=== PATIENT | male | born 1945 | race Caucasian/White ===

== ENCOUNTER 2024-04-10 17:01 | Inpatient (IN) | payer MEDICARE, OTHER ==
[~2024-04-10] VITALS: Ht 165.1 cm; Wt 62.2 kg
[2024-04-10 17:30] VITALS: BP 141/73; TEMP 98; O2SAT 97
[2024-04-10] MEDS ORDERED: ATOR20TA PO ×2 (18:25→20:28)
[2024-04-10] MEDS ORDERED: FINA5TAB11 PO (18:25)
[2024-04-10] MEDS ORDERED: IPRA0.2S6 HHN (18:25)
[2024-04-10] MEDS ORDERED: HYDR-4075 IV (18:25)
[2024-04-10] MEDS ORDERED: ONDA4TAB5 IVP (18:25)
[2024-04-10] MEDS ORDERED: BISO5TAB21 PO (18:25)
[2024-04-10] MEDS ORDERED: MORP15TA PO (18:25)
[2024-04-10] MEDS ORDERED: APIX5TAB4 PO (18:25)
[2024-04-10] MEDS ORDERED: FERR220S16 PO (18:25)
[2024-04-10] MEDS ORDERED: TAMS-3 PO (18:25)
[2024-04-10] MEDS ORDERED: ACET650T10 PO (18:25)
[2024-04-10] MEDS ORDERED: SODI62.58 IV (18:25)
[2024-04-10] MEDS ORDERED: APIX5TAB PO (20:18)
[2024-04-10] MEDS ORDERED: ACET-3102 PO (20:18)
[2024-04-10 22:02] LABS: BASOPHILS # (AUTO) 0.1 K/UL (0.0-0.2); BASOPHILS % (AUTO) 0.7 % (0.0-2.0); EOSINOPHILS # (AUTO) 0.2 K/uL (0.0-0.7); EOSINOPHILS % (AUTO) 2.7 % (0.0-7.0); HEMATOCRIT 25.8 % (36.7-47.1); HEMOGLOBIN 8.7 g/dL (12.5-16.3); LYMPHOCYTES % (AUTO) 12.3 % (20.5-51.5); MEAN CORPUSCULAR HEMOGLOBIN 25.7 uug (23.8-33.4); MEAN CORPUSCULAR HGB CONC 34 g/dL (32.5-36.3); MEAN CORPUSCULAR VOLUME 76.1 fL (73.0-96.2); MONOCYTES # (AUTO) 0.8 K/uL (0.1-1.30); MONOCYTES % (AUTO) 9.2 % (0.0-11.0); NEUTROPHILS # (AUTO) 6.1 K/uL (1.8-8.9); NEUTROPHILS % (AUTO) 75.1 % (38.5-71.5); PLATELET COUNT (AUTO) 327 K/uL (152-348); RED BLOOD CELL COUNT(AUTO) 3.39 MIL/uL (4.06-5.63); WHITE BLOOD COUNT (AUTO) 8.1 K/uL (3.6-10.2)
[2024-04-10 22:04] LABS: DIFFERENTIAL COMMENT 1
[2024-04-10 22:10] LABS: CALCIUM 8.5 mg/dL (8.5-10.1); CARBON DIOXIDE 27 mmol/L (21-32); CHLORIDE 107 mmol/L (98-107); CREATININE 0.8 mg/dL (0.6-1.3); GLUCOSE 118 mg/dL (74-106); POTASSIUM 3.9 mmol/L (3.5-5.1); SODIUM SERUM 141 mmol/L (136-145); UREA NITROGEN, BLOOD 15 mg/dL (7-18)
[2024-04-10] MEDS: TAMSULOSIN HCL 0.4 MG CAP.SR.24H PO SCH (22:14)
[2024-04-10] MEDS: APIXABAN 5 MG TABLET PO SCH (23:23)
[2024-04-10 23:27] VITALS: BP 136/63; TEMP 98.2; O2SAT 95
[2024-04-11] MEDS: ACETAMINOPHEN 325 MG TABLET PO PRN (01:38)
[2024-04-11] MEDS ORDERED: REMEDY ESSENTIAL ZINC PASTE 113 GM TOP PRN (05:15)
[2024-04-11 05:42] VITALS: O2SAT 97
[2024-04-11] MEDS: FINASTERIDE 5 MG TABLET PO SCH (09:25)
[2024-04-11] MEDS: ATENOLOL 25 MG TABLET PO SCH (09:25)
[2024-04-11] MEDS: OXYCODONE/APAP 5-325 MG TABLET PO PRN (13:28)
[2024-04-11 13:57] LABS: BASOPHILS % (AUTO) 0.5 % (0.0-2.0); EOSINOPHILS # (AUTO) 0.2 K/uL (0.0-0.7); EOSINOPHILS % (AUTO) 2.5 % (0.0-7.0); HEMOGLOBIN 8.6 g/dL (12.5-16.3); LYMPHOCYTES # (AUTO) 0.8 K/uL (0.8-4.8); MEAN CORPUSCULAR HEMOGLOBIN 25.3 uug (23.8-33.4); MEAN CORPUSCULAR HGB CONC 33 g/dL (32.5-36.3); MEAN CORPUSCULAR VOLUME 76.5 fL (73.0-96.2); MONOCYTES # (AUTO) 0.8 K/uL (0.1-1.30); MONOCYTES % (AUTO) 10.3 % (0.0-11.0); NEUTROPHILS # (AUTO) 6.2 K/uL (1.8-8.9); NEUTROPHILS % (AUTO) 76.7 % (38.5-71.5); PLATELET COUNT (AUTO) 348 K/uL (152-348); RED CELL DISTRIBUTION WIDTH 18.3 % (12.1-16.2)
[2024-04-11 14:01] LABS: DIFFERENTIAL COMMENT 1
[2024-04-11 14:07] LABS: CARBON DIOXIDE 28 mmol/L (21-32); CHLORIDE 109 mmol/L (98-107); GLUCOSE 99 mg/dL (74-106); PHOSPHOROUS 3.6 mg/dL (2.5-4.9); POTASSIUM 3.9 mmol/L (3.5-5.1); SODIUM SERUM 145 mmol/L (136-145); UREA NITROGEN, BLOOD 18 mg/dL (7-18)
[2024-04-11 14:17] LABS: CALCIUM 8.7 mg/dL (8.5-10.1); CREATININE 0.8 mg/dL (0.6-1.3)
[2024-04-11] MEDS: SOD FERRIC GLUC COMPLX/SUCROSE 125 MG in IV NORMAL SALINE 100 ML IV SCH (15:06)
[2024-04-11 16:03] VITALS: BP 132/63; TEMP 97.7; O2SAT 95
[2024-04-11 20:57] VITALS: BP 126/56; TEMP 97.9; O2SAT 90
[2024-04-11] MEDS: ATORVASTATIN 20 MG TABLET PO SCH (21:38)
[2024-04-12 06:52] VITALS: BP 151/78; TEMP 97.7; O2SAT 92
[2024-04-12 15:18] VITALS: BP 123/56; TEMP 97.8; O2SAT 97
[2024-04-12 19:22] VITALS: BP 136/61; TEMP 98.5; O2SAT 95
[2024-04-13 06:15] VITALS: BP 158/74; TEMP 98.4; O2SAT 94
[2024-04-13] MEDS: OXYCODONE HCL 5 MG TABLET PO PRN (08:16)
[2024-04-13 15:17] VITALS: BP 117/59; TEMP 97.6; O2SAT 96
[2024-04-13 19:32] VITALS: BP_SYST 120; BP_SYST 149; BP_DIAS 54; BP_DIAS 66; TEMP 98.8; O2SAT 92; O2SAT 94
[2024-04-13] MEDS: MIRALAX 17 GM POWD.PACK PO SCH (20:55)
[2024-04-14 06:40] VITALS: BP 149/74; TEMP 98.3; O2SAT 95
[2024-04-14 14:54] VITALS: BP 121/67; TEMP 97.1; O2SAT 96
[2024-04-14 20:41] VITALS: BP 136/67; TEMP 97.9; O2SAT 96
[2024-04-15 06:00] VITALS: BP 137/68; TEMP 98.3; O2SAT 97
[2024-04-15] MEDS ORDERED: MAGNESIUM HYDROXIDE 30 ML LIQUID UDC PO PRN (14:30)
[2024-04-15] MEDS: MAGNESIUM HYDROXIDE 30 ML LIQUID UDC PO PRN (15:41)
[2024-04-15 16:12] VITALS: BP 125/60; TEMP 97.6; O2SAT 98
[2024-04-15 20:00] VITALS: BP 145/65; TEMP 98; O2SAT 97
[2024-04-16 05:47] VITALS: BP 132/72; TEMP 98.1; O2SAT 95
[2024-04-16] MEDS: SENNOSIDES/DOCUSATE SODIUM TABLET PO SCH (08:57)
[2024-04-16 16:05] VITALS: BP 121/64; TEMP 97.6; O2SAT 97
[2024-04-16 19:00] VITALS: BP 92/46; TEMP 97.9; O2SAT 93
[2024-04-17 06:06] VITALS: BP 104/68; TEMP 97.6; O2SAT 95
[2024-04-17 15:26] VITALS: BP 131/73; TEMP 97.8; O2SAT 96
[2024-04-17 20:27] VITALS: BP 112/63; TEMP 97.8; O2SAT 94
[2024-04-18 06:49] VITALS: BP 145/74; TEMP 98.6; O2SAT 94
[2024-04-18 16:15] VITALS: BP 124/63; TEMP 97.8; O2SAT 96
[2024-04-18 20:04] VITALS: BP 109/68; TEMP 98.1; O2SAT 95
[2024-04-19 06:10] VITALS: BP 120/69; TEMP 97.8; O2SAT 94
[2024-04-19 07:29] LABS: BASOPHILS # (AUTO) 0.1 K/UL (0.0-0.2); BASOPHILS % (AUTO) 1.1 % (0.0-2.0); EOSINOPHILS # (AUTO) 0.3 K/uL (0.0-0.7); EOSINOPHILS % (AUTO) 4.1 % (0.0-7.0); HEMATOCRIT 29.6 % (36.7-47.1); HEMOGLOBIN 9.8 g/dL (12.5-16.3); LYMPHOCYTES # (AUTO) 1.1 K/uL (0.8-4.8); LYMPHOCYTES % (AUTO) 17.3 % (20.5-51.5); MEAN CORPUSCULAR HEMOGLOBIN 25.8 uug (23.8-33.4); MEAN CORPUSCULAR HGB CONC 33 g/dL (32.5-36.3); MEAN CORPUSCULAR VOLUME 78.2 fL (73.0-96.2); MONOCYTES # (AUTO) 0.5 K/uL (0.1-1.30); MONOCYTES % (AUTO) 7.6 % (0.0-11.0); NEUTROPHILS # (AUTO) 4.3 K/uL (1.8-8.9); NEUTROPHILS % (AUTO) 69.9 % (38.5-71.5); PLATELET COUNT (AUTO) 504 K/uL (152-348); RED BLOOD CELL COUNT(AUTO) 3.79 MIL/uL (4.06-5.63); RED CELL DISTRIBUTION WIDTH 18.5 % (12.1-16.2); WHITE BLOOD COUNT (AUTO) 6.2 K/uL (3.6-10.2)
[2024-04-19 07:32] LABS: CALCIUM 8.7 mg/dL (8.5-10.1); CARBON DIOXIDE 30 mmol/L (21-32); CHLORIDE 105 mmol/L (98-107); CREATININE 0.7 mg/dL (0.6-1.3); GLUCOSE 94 mg/dL (74-106); SODIUM SERUM 141 mmol/L (136-145); UREA NITROGEN, BLOOD 17 mg/dL (7-18)
[2024-04-19 07:34] LABS: DIFFERENTIAL COMMENT 1
[2024-04-19 08:37] LABS: *BILIRUBIN,URIN NEGATIVE (NEGATIVE); *CLARITY,URINE CLEAR (CLEAR); *COLOR,URINE YELLOW (YELLOW); *KETONES,URINE NEGATIVE (NEGATIVE); *PROTEIN,URINE NEGATIVE (NEGATIVE); *UROBILINOGEN,URINE 0.2 E.U./dl (NORMAL); LEUKOCYTE ESTERASE ,URINE NEGATIVE (NEGATIVE); NITRITE, URINE NEGATIVE (NEGATIVE); UGLUCOSE NEGATIVE (NEGATIVE)
[2024-04-19 08:49] LABS: *BLOOD, URINE TRACE (NEGATIVE); WBC,URINE 0-3 /HPF (0-3)
[2024-04-19 15:18] VITALS: BP 115/64; TEMP 97.4; O2SAT 97
[2024-04-19] MEDS ORDERED: BISACODYL 5 MG TABLET.DR PO PRN (17:30)
[2024-04-19] MEDS ORDERED: HYDROCORTISONE 1% OINT 28.35 GM TUBE TOP PRN (19:00)
[2024-04-19 19:34] VITALS: BP 103/62; TEMP 98.3; O2SAT 94
[2024-04-20 06:40] VITALS: BP 130/61; TEMP 98.4; O2SAT 96
[2024-04-20] MEDS: LINZESS 145 MCG PO PRN (09:05)
[2024-04-20] MEDS: [UNRECOGNIZED DRUG - OTHER] PO PRN (09:05)
[2024-04-20 16:15] VITALS: BP 105/61; TEMP 98.1; O2SAT 96
[2024-04-20 20:00] VITALS: BP 126/66; TEMP 98.3; O2SAT 95
[2024-04-21] MEDS: FAMOTIDINE 20 MG TABLET PO SCH (09:39)
[2024-04-21 16:07] VITALS: BP 127/71; TEMP 97.8; O2SAT 97
[2024-04-21 21:14] VITALS: BP 115/56; TEMP 98; O2SAT 95
[2024-04-22 07:16] VITALS: BP 120/67; TEMP 97.7; O2SAT 99
[2024-04-22 15:04] VITALS: BP 115/56; TEMP 97.8; O2SAT 95
[2024-04-22 20:23] VITALS: BP 123/71; TEMP 97.5; O2SAT 94
[2024-04-23 04:48] VITALS: BP 139/73; TEMP 97.8; O2SAT 93
[2024-04-23 15:07] VITALS: TEMP 97.7
[2024-04-23 19:00] VITALS: BP 126/62; TEMP 97.6; O2SAT 97
[2024-04-24 14:48] VITALS: BP 120/57; TEMP 97.8; O2SAT 100
[2024-04-24 20:52] VITALS: BP 114/56; TEMP 97.7; O2SAT 96
[2024-04-25 06:32] VITALS: BP 138/70; TEMP 98; O2SAT 93
[2024-04-25 09:04] VITALS: BP 138/70
== END 2024-04-25 13:30 | DRG 560 ==
PROVIDERS: ADMIT Physical Medicine & Rehabilitation Pain Medicine; ATTEND Physical Medicine & Rehabilitation Pain Medicine
DX: S72.142D Displaced intertrochanteric fracture of left femur, subsequent encounter for closed fracture with routine healing (principal); D68.59 Other primary thrombophilia; E44.0 Moderate protein-calorie malnutrition; S72.122D Displaced fracture of lesser trochanter of left femur, subsequent encounter for closed fracture with routine healing; W19.XXXD Unspecified fall, subsequent encounter; D64.9 Anemia, unspecified; E78.5 Hyperlipidemia, unspecified; E88.09 Other disorders of plasma-protein metabolism, not elsewhere classified; I10 Essential (primary) hypertension; I70.0 Atherosclerosis of aorta; N40.0 Benign prostatic hyperplasia without lower urinary tract symptoms; Z86.718 Personal history of other venous thrombosis and embolism; Z79.01 Long term (current) use of anticoagulants; K59.00 Constipation, unspecified; Z74.09 Other reduced mobility
CPT/HCPCS: 36415; 73502; 83735; 84100; 85025; 97535-GO-CO; J2916